=== PATIENT | male | born 1955 | race Caucasian/White ===

== ENCOUNTER 2022-12-01 05:51 | Observation (INO) ==
--- NOTE | 2022-11-24 11:13 | Anesthesiology Consultation ---
Date of Service November 24, 2022 Assessment & Plan (1) Encounter for pre-operative examination: Chart Review Chart Review: Acceptable Risk for Surgery and Patient NOT seen in Pre Admission Testing -COVID screening: Per PAT nursing assessment on 11/24/22. Pt traveled to [place] (drove)- returned 11/06/22- no large gatherings. No PPE. No known COVID-19 positive contacts or current COVID-19 related symptoms. Patient vaccinated for Covid. At surgeon discretion if preop Covid testing being done. History Surgery Operation Date: 12/01/22 07:30 Proposed Procedures p Laparoscopic Robotic Assisted Radical Retropubic Prostatectomy, Possible Open, Possible Pelvic Lymph Node Dissection - Jonathan Mcfadden MD Height/Weight Height: 6 ft 6 in Weight: 106.594 kg Allergies Allergy/AdvReac Type Severity Reaction Status Date / Time No Known Allergies Allergy Verified 11/24/22 10:16 Medications Home Medications Medication Instructions Recorded Confirmed Last Taken Juice plus capsule 1 cap PO DAILY 10/27/22 11/24/22 Unknown Past Medical History Medical History Prostate cancer (09/29/22) Past Family History Family History Mother , 90yo Colorectal cancer CHF (congestive heart failure) Grandfather (Paternal) Cancer Grandfather (Maternal) Hypertension Grandfather (Paternal) Stroke Father , 82yo Lung disease CHF (congestive heart failure) Aortic aneurysm Brother No problems noted. Brother No problems noted. Brother No problems noted. Son No problems noted. Son Down's syndrome Daughter No problems noted. Daughter No problems noted. Past Surgical History Surgical History History of detached retina repair Left eye Hx of colonoscopy Hx of wisdom tooth extraction Social History Smoking Status: Never smoker Do You Dip or Chew Tobacco: No Hx Alcohol Use: No Hx Substance Use: No substance use type: does not use Lab Results Anesthesia Preop Results Results Anesthesia Widget: WBC 4.52 K/ul (4.8-10.8) L 11/11/22 Hgb 14.3 g/dl (14.0-18.0) 11/11/22 Hct 42.4 % (42.0-52.0) 11/11/22 Plt 176 K/uL (130-400) 11/11/22 Na 140 mmol/L (136-145) 11/11/22 K 4.4 mmol/L (3.5-5.1) 11/11/22 Cl 107 mmol/L (98-107) 11/11/22 CO2 31 mmol/L (21-32) 11/11/22 BUN 14 mg/dl (6-23) 11/11/22 Creat 0.94 mg/dl (0.6-1.4) 11/11/22 Glucose Level 100 mg/dl (70-99(Fasting)) H 11/11/22 Urine Color Yellow 11/11/22 Urine Appearance Clear (Clear) 11/11/22 Urine pH 6.0 (4.5-7.5) 11/11/22 Urine Specific [place] 1.018 (1.000-1.030) 11/11/22 Urine Protein Negative (Negative) 11/11/22 Urine Glucose (UA) Negative (Negative) 11/11/22 Urine Ketones Negative (Negative) 11/11/22 Urine Blood Negative (Negative) 11/11/22 Urine Nitrite Negative (Negative) 11/11/22 Urine Bilirubin Negative (Negative) 11/11/22 Urine Urobilinogen Negative (Negative) 11/11/22 Urine Leukocyte Esterase Negative (Negative) 11/11/22 Testing Laboratory Results 11/11/22= URINE CULTURE: 3 types of organisms present, all low counts probable skin luci Electrocardiogram Date: 11/11/22 Findings: + NSR @ (63bpm) Normal EKG per cardio Chest X-Ray Date: 11/11/22 Findings: + NAD
[2022-12-01] MEDS ORDERED: HEPARIN SOD 5,000 UNIT/0.5 ML VIAL SQ SCH (06:00)
[2022-12-01] MEDS ORDERED: LR 15ML/HR IV SCH (06:00)
[2022-12-01] MEDS ORDERED: LACTATED RINGER'S 1,000 ML IV SCH (06:00)
[2022-12-01] MEDS ORDERED: ceFAZolin 2000MG 2,000 MG/15 ML SYR IV SCH (06:00)
[2022-12-01] MEDS ORDERED: PROPOFOL IV EMULSION 10 MG/ML 20 ML VIAL IV ONE (07:00)
[2022-12-01] MEDS ORDERED: fentaNYL citrate PF 100 MCG/2 ML VIAL ONE (07:00)
[2022-12-01] MEDS ORDERED: ROCURONIUM BROMIDE 10 MG/ML 5 ML VIAL IV ONE (07:00)
[2022-12-01] MEDS ORDERED: DEXAMETHASONE SOD INJ 4 MG/ML VIAL ONE (07:00)
[2022-12-01] MEDS ORDERED: MIDAZOLAM HCL 1 MG/ML 2ML VIAL ONE (07:00)
[2022-12-01] MEDS ORDERED: LIDOCAINE 2% 2 ML VIAL/AMP(20MG/ML) INFIL ONE (07:00)
[2022-12-01] MEDS ORDERED: SUGAMMADEX SODIUM 200 MG/2 ML VIAL IV ONE (07:00)
[2022-12-01] MEDS ORDERED: ONDANSETRON INJ 2 MG/ML 2 ML VIAL ONE (07:00)
--- NOTE | 2022-12-01 07:04 | History & Physical Bridge Note ---
Date of Service December 01, 2022 History & Physical Bridge Note I have examined the patient, reviewed the History & Physical and in the interval since the performance of the History & Physical I have noted the following changes of clinical significance: no changes noted
[2022-12-01] MEDS ORDERED: BUPIVACAINE 0.5 % 5 MG/1 ML MPF 30ML VIAL ONE (07:16)
[2022-12-01] MEDS ORDERED: BELLADONNA/OPIUM SUPP 60 MG SUPP PR ONE ×2 (07:50→11:33)
[2022-12-01] MEDS ORDERED: HYDROmorphone INJ 2 MG/ML SYR/VIAL ONE (08:42)
--- NOTE | 2022-12-01 11:46 | Operative Report ---
PG Post Operative Report Pre & Post Diagnosis Operation Date: 12/01/22 07:30 Pre-Op Diagnosis: Prostate Cancer Post-Op Diagnosis: Prostate Cancer I identified the patient and participated in the time-out.: Yes Procedure Operation Date: 12/01/22 07:30 Actual Procedures p Robotic Assisted Laparoscopic Radical Retropubic Prostatectomy, bilateral pelvic lymph node dissection- Jonathan Mcfadden MD Surgeon Jonathan Mcfadden MD Air Brush Decorator COLLEEN Briceno Estimated Blood Loss 100 Findings Consistent with Post-Op Diagnosis Specimens 1) periprostatic fat 2) right pelvic lymph nodes 3) left pelvic lymph nodes 4) prostate, seminal vesicles, vas deferens Drains Pavon catheter per urethra Anesthesia Type General Complications none Disposition Accompanied Patient To Recovery: Yes Disposition: Recovery Room Indications This is a 67-year-old male with history of prostate cancer. After thorough discussion of treatment options, he elected to proceed with robot-assisted radical prostatectomy. He presented to the OR for this procedure on 12/01/2022. Description of Procedure The patient was identified in the preoperative holding area and informed consent was confirmed. He was then brought to the operating room where general anesthesia was initiated. He was placed supine on the operating room table with all pressure points appropriately padded. His abdomen and genitalia were prepped and draped in the usual sterile fashion and a timeout was performed. A 2 cm incision was made above the umbilicus and then a Veress needle was used to obtain access to the abdomen. Proper position was confirmed with the drop test and low initial insufflation pressure. The abdomen was insufflated with CO2 to a pressure of 12 mmHg. An 8 mm robotic port was placed in the incision and the robotic camera was inserted. The abdominal cavity was surveyed, demonstrating no injury to abdominal contents. There were no significant intra- abdominal adhesions.. The remaining robotic ports were placed under direct visualization, with 2 robotic ports on the left side and 1 robotic port on the right. A 12 mm recreational assistant port was placed on the right side as well, and a 5 mm recreational assistant port was placed in the right upper quadrant. The robot was then docked. Using electrocautery, the bladder was then dropped from the anterior wall of the abdomen, exposing the space of Retzius. This dissection was carried down to expose the pelvic brim and subsequently the anterior surface of the prostate and the endopelvic fascia. The fat overlying the anterior of the prostate was removed and sent for pathologic analysis, labeled as 'periprostatic fat'. The endopelvic fascia was then divided on each side to expose the lateral aspects of the prostate and the lateral aspects of the pedicles. There was some inflammatory rind to the endopelvic fascia on both sides of the prostate. A single 3-0 V-Loc suture was used to ligate the dorsal venous complex to prevent backbleeding in subsequent steps. The fourth arm of the robot was then used to put some gentle traction on the bladder, and the bladder neck was identified. Using electrocautery, the anterior bladder neck was dissected to expose the Pavon catheter, whose tip was removed from the bladder and held anteriorly. The posterior bladder neck dissection was then completed. At this point bilateral vas deferens were exposed and isolated. The vas deferens were cauterized and then divided. Bilateral seminal vesicles were dissected out as well. Denonvilliers fascia was then divided and the posterior prostate dissection was carried up as far as possible toward the urethra. The pedicles were then divided using combination of clips and sharp dissection, trying to use minimal electrocautery. On the right side the nerve sparing approach was used. On the left side, a partial nerve sparing approach was used Attention was turned anteriorly and the dorsal venous complex was divided using sharp dissection and electrocautery. The urethra was isolated and then divided sharply. At this point, the prostate was free and was placed in a specimen bag. Bilateral pelvic lymph node dissection was then performed, and the eda tissue was sent for pathologic analysis. The pelvis was inspected and meticulous hemostasis was ensured. Double-armed V- Loc suture was then used to re-anastomose the bladder neck with the urethra. Once this was complete, the anastomosis was tested by instilling 120 mL of normal saline into the bladder. Satisfied that the anastomosis was watertight, the catheter balloon was inflated with 10 mL of normal saline. A "Masha" style stitch to create a peritoneal window with the hope of preventing future lymphocele formation was performed on each side using a 4-0 Monocryl suture. The robot was then undocked. The supraumbilical incision was extended and the prostate was extracted. 0 Vicryl suture was then used to close the fascia at this incision. All skin incisions were anesthetized with 0.5% Marcaine and were closed with 4-0 Monocryl suture and then a layer of Dermabond was applied. The patient was then awakened from anesthesia and was brought to the PACU in stable condition. COLLEEN Briceno, acted as the bedside recreational assistant for the duration of the case. She assisted with gaining access, providing retraction and suction. Passing in sutures and applying clips as needed. She also helped with specimen extraction and closing. I attest to the content of the Intraoperative Record and any orders documented therein. Any exceptions are noted below.
[2022-12-01] MEDS ORDERED: ONDANSETRON INJ 2 MG/ML 2 ML VIAL IV PRN (13:24)
[2022-12-01] MEDS ORDERED: IBUPROFEN 200 MG TAB PO PRN (13:24)
[2022-12-01] MEDS ORDERED: POLYETHYLENE (MIRALAX) 17 GM PACK PO PRN (13:24)
[2022-12-01] MEDS ORDERED: MoRPHine SULFATE 2 MG/ML CARP IV PRN (13:24)
[2022-12-01] MEDS ORDERED: MoRPHine SULFATE 4 MG/ML 1 ML CARP\\VIAL IV PRN (13:24)
[2022-12-01] MEDS ORDERED: oxyCODONE HCL IR 5 MG TAB (IMMEDIATE RELEASE) PO PRN ×2 (13:24)
--- NOTE | 2022-12-01 14:10 | Anesthesiology Progress Note ---
Date of Service December 01, 2022 Anesthesia Post Procedure Vital Signs Vital Signs: Temp Pulse Pulse Resp BP BP Pulse Ox 12/01/22 14:00 36.4 C L 74 17 109/67 96 12/01/22 13:45 36.4 C L 75 16 132/75 95 12/01/22 13:35 36.9 C 77 16 128/71 98 12/01/22 12:50 72 12 120/69 96 12/01/22 12:40 36.5 C 72 12 125/67 95 12/01/22 12:30 74 12 127/66 96 12/01/22 12:20 79 12 130/69 98 12/01/22 12:10 77 10 L 139/71 98 12/01/22 12:00 36.1 C L 72 12 117/69 97 12/01/22 06:11 36.6 C 76 20 126/83 97 O2 Del Method O2 Flow Rate 12/01/22 14:00 Nasal Cannula 3 12/01/22 13:45 Nasal Cannula 12/01/22 13:35 Nasal Cannula 3 12/01/22 12:50 Room Air 2 12/01/22 12:40 Nasal Cannula 2 12/01/22 12:30 Room Air 12/01/22 12:20 Oxymask 4 12/01/22 12:10 Oxymask 6 12/01/22 12:00 Oxymask 6 12/01/22 06:11 Room Air Transfer of Care Handoff Completed per policy Notes Mental Status: alert / awake / arousable and participated in evaluation Patient Amnestic to Procedure: Yes Nausea / Vomiting: adequately controlled Pain: adequately controlled Airway Patency, RR, SpO2: stable & adequate BP & HR: stable & adequate Hydration State: stable & adequate Anesthetic Complications: no major complications apparent and Pt Satisfied with anesthetic care
[2022-12-01] MEDS: ceFAZolin 2000MG 2,000 MG/15 ML SYR IV SCH (16:26)
[2022-12-01] MEDS ORDERED: ERYTHROMYCIN OP OINT 1 GM PKT OP SCH (18:30)
[2022-12-01] MEDS: ERYTHROMYCIN OP OINT 5 MG/GM 3.5 GM TUBE OP SCH (19:04)
[2022-12-01] MEDS: LACTATED RINGER'S 1,000 ML IV SCH ×2 (19:39→23:06)
[2022-12-01] MEDS: ACETAMINOPHEN 325 MG TAB PO SCH (20:15)
[2022-12-01] MEDS: DOCUSATE SODIUM 100 MG CAP PO SCH (20:17)
[2022-12-01] MEDS: HEPARIN SOD 5,000 UNIT/0.5 ML VIAL SQ SCH (20:17)
[2022-12-02] MEDS: ERYTHROMYCIN OP OINT 5 MG/GM 3.5 GM TUBE OP SCH ×2 (00:03→07:26)
[2022-12-02] MEDS: ceFAZolin 2000MG 2,000 MG/15 ML SYR IV SCH (00:03)
[2022-12-02] MEDS: ACETAMINOPHEN 325 MG TAB PO SCH ×2 (02:22→09:05)
[2022-12-02 08:06] LABS: Basophils # (auto) 0.02 K/uL (0-0.2); Basophils % (auto) 0.2 %; Eosinophils # (auto) 0.01 K/uL (0-0.50); Eosinophils % (auto) 0.1 %; Hematocrit (blood only) 39.1 % (42.0-52.0); Hemoglobin 13.2 g/dl (14.0-18.0); Immature Granulocytes # (auto) 0.04 K/uL (0.01-0.20); Immature Granulocytes % (auto) 0.5 %; Lymphocytes # (auto) 1.44 K/uL (1.2-3.4); Lymphocytes % (auto) 16.6 %; Mean Corpuscular Hemoglobin 29.5 pg (25.0-34.0); Mean Corpuscular Hgb Conc 33.8 g/dL (32.0-36.0); Mean Corpuscular Volume 87.3 fL (80.0-100.0); Mean Platelet Volume 9.8 fL (9.4-12.4); Monocytes % (auto) 11.5 %; Neutrophils # (auto) 6.17 K/uL (1.40-6.50); Neutrophils % (auto) 71.1 %; Platelet Count 178 K/uL (130-400); RDW Coefficient of Variation 14.3 % (11.5-14.5); RDW Standard Deviation 45.5 fL (36.4-46.3); Red Blood Count 4.48 M/uL (4.70-6.10); White Blood Count 8.68 K/ul (4.8-10.8)
[2022-12-02 08:31] LABS: Calcium 9.4 mg/dl (8.5-10.1); Potassium 4.3 mmol/L (3.5-5.1)
[2022-12-02 08:37] LABS: BUN Creatinine Ratio 14.1 (10-20); Est GFR (African American) 89.7 ml/min; Est GFR (Non-African American) 77.4 ml/min
--- NOTE | 2022-12-02 08:46 | Urology Progress Note ---
I have discussed Mr. Arango's case with COLLEEN Briceno and agree with the documentation. Patient doing well postop day 1 from robot-assisted radical prostatectomy. He is ambulating, tolerating a diet and his pain is well controlled. He should be appropriate for discharge home with catheter in place. We will plan on follow-up in 1 week for voiding trial and pathology review. Jonathan Mcfadden MD. Date of Service December 02, 2022 Assessment & Plan (1) Prostate cancer: Plan POD #1 s/p Robotic Assisted Laparoscopic Radical Retropubic Prostatectomy, bilateral pelvic lymph node dissection with Dr. Mcfadden. Doing well this morning, progressing as expected. Remains afebrile and hemodynamically stable. Labs today show no leukocytosis, normal renal function, stable hemoglobin at 13.2. Pavon catheter is intact and draining clear yellow urine. Tolerating diet without nausea or vomiting. Ambulating without issue. Patient is stable for discharge home today with Pavon catheter. Discharge instructions were reviewed, all questions were answered. Will arrange appropriate postoperative follow-up. Admission and Anticipated Discharge Date Admission Date: December 01, 2022 Subjective Patient seen and examined at bedside this AM with Dr. Mcfadden. Awake, sitting up in bedside chair on arrival. No acute distress. No acute issues overnight. Pavon catheter intact, draining clear yellow urine in tubing. Minimal pain. Ambulating without issue. Tolerating diet, no nausea or vomiting. Review of Systems Constitutional: as per Subjective / HPI Gastrointestinal: as per Subjective / HPI Genitourinary: + as per Subjective / HPI Physical Exam Constitutional: well developed and well nourished; no acute distress Respiratory: normal respiratory effort; no respiratory distress and no labored breathing Gastrointestinal (Abdomen): Incisions appropriate, Dermabond intact. Skin: No visible rashes or lesions to exposed skin areas Neurologic: moves all extremities and awake Psychiatric: A+Ox3, euthymic affect Genitourinary: Pavon catheter intact Results & Data ([facility]) Vital Signs (Past 12 Hours) Vital Signs Temp Pulse Resp BP Pulse Ox O2 Del Method 12/02/22 02:27 37.3 C 73 16 120/68 96 Room Air 12/01/22 21:38 36.8 C 79 18 146/75 H 95 Room Air PG Care Time/CCT Total # of Minutes Spent Total Time Spent with Patient: Total time spent is greater than 50% in coordination of care (as documented) at patient's floor/unit and/or counseling patient: Coding Level of Care Code None Diagnoses Prostate cancer C61
[2022-12-02] MEDS: DOCUSATE SODIUM 100 MG CAP PO SCH (09:05)
[2022-12-02] MEDS: HEPARIN SOD 5,000 UNIT/0.5 ML VIAL SQ SCH (09:06)
[2022-12-02] MEDS: LACTATED RINGER'S 1,000 ML IV SCH (10:40)
--- NOTE | 2022-12-02 13:54 | Discharge Summary ---
Date of Service December 02, 2022 Admission HPI Per Admitting Provider 67 year old male with prostate cancer admitted for robotic prostatectomy Admission Exam Per Admitting Provider Constitutional well developed and well nourished; no acute distress Eyes + anicteric sclerae; pupils not irregular Respiratory normal respiratory effort; no respiratory distress, does not use accessory muscles and no cough Cardiovascular well perfused Gastrointestinal (Abdomen) Inspection/Auscultation: abdomen normal to inspection; abdomen not distended Musculoskeletal Extremities: extremities normal to inspection Skin normal turgor; no rashes and no lesions Neurologic moves all extremities and awake Psychiatric Orientation: alert and oriented x 3 Principal Diagnosis Prostate cancer Discharge Exam Constitutional well developed and well nourished; no acute distress Respiratory normal respiratory effort; no respiratory distress and no labored breathing Gastrointestinal (Abdomen) Incisions appropriate, Dermabond intact Neurologic moves all extremities and awake Psychiatric A+Ox3, euthymic affect Genitourinary Leiva catheter intact Discharge Data Allergies Allergy/AdvReac Type Severity Reaction Status Date / Time No Known Allergies Allergy Verified 12/01/22 06:07 Procedures Performed Operation Date: 12/01/22 07:30 Actual Procedures p Robotic Assisted Laparoscopic Radical Retropubic Prostatectomy(Not Applicable) - Jonathan Mcfadden MD Hospital Course (1) Prostate cancer: Plan 67 year old male admitted for Robotic Assisted Laparoscopic Radical Retropubic Prostatectomy, bilateral pelvic lymph node dissection with Dr. Mcfadden. Patient tolerated procedure well. No acute issues postoperatively. He remained afebrile and hemodynamically stable. Appropriate labs. Minimal pain. He tolerated a diet and ambulated without issue. Urine was clear yellow. He was subsequently discharged home on postop day #1 with a leiva catheter. He was in stable condition at time of discharge. Postoperative follow-up appointments were in place. Discharge instructions were reviewed, all questions were answered. Total Time Total Time Spent Total Time Spent (In Minutes): 15 Discharge Plan Discharge Items Patient Disposition: Home - Self-Care Reason For Visit: Prostate Cancer Discharge Diagnosis: Prostate cancer Condition on Discharge: Good Activity: Per Instructions section Non-emergency contact: Surgeon and Urologist Call non-emergency contact if: you have any medication questions, your pain is not controlled, your temperature is above 101 and your wound has increased redness Follow-up/Referrals: Jonathan Mcfadden MD [Physician] - 12/08/22 9:20 am Petr Gustafson MD [Primary Care Provider] - Diet: Regular Addtl Attending Provider Instructions: The surgery you had was: Robot-assisted radical prostatectomy with bilateral pelvic lymph node dissection. Please take all medications as prescribed and keep all follow-ups as scheduled. Please call our office at [phone] with any questions, concerns or need to reschedule appointments for any reason. We are happy to assist you Medications: Please take all medications as prescribed. For pain control, you can take tylenol every 6 hours. You can also take ibuprofen every 6 hours. If you have been prescribed a narcotic pain medication, please take this according to the instructions on the label. You have been prescribed a single dose of antibiotics (Bactrim) to be taken 1 hour prior to your appointment for leiva catheter removal. Activity: We recommend having someone with you for the first few days after surgery to help care for you. For the first 2 weeks after surgery, we would like you to get up and walk around your house. However, we recommend limit physical activity that would increase your heart rate. This will allow your body to rest and heal. Take naps if you feel tired. Don't lift anything heavier than 10 pounds, mow the law or ride a bicycle until your follow-up appointment. Please avoid long car rides. Home Care: Unless directed otherwise, drink 6 to 8 glasses of water a day (enough to keep your urine light colored). This will also help keep a healthy flow of urine. We recommend using a stool softener such as colace or miralax for the first two weeks to avoid constipation. Leiva Catheter or Suprapubic Catheter care: Keep the catheter well secured with either a leg back or leg strap with large bag. Empty your bag when it's about half full. You may notice some blood in the bag. This is normal after surgery and while the catheter is in place. Use mild soap (such as Dove or Dial) and water to wash the catheter and the head of your penis daily, or more frequently if needed. Return to your normal diet, we encourage good protein intake to promote healing. You may shower as normal. Please avoid tub baths or soaking until catheter removed and incisions well healed. Wearing sweat pants while you have the catheter is recommended, they will be more comfortable. Follow-up We will have you come to the office in approximately 7 days for catheter removal. - Please remember to take your dose of antibiotics 1 hour prior to this appointment. We will plan to go over pathology results at this visit. We will schedule an office visit in approximately 3 months with PSA prior. Your final pathology report will be discussed at your physician follow-up appointment. Call [facility] at [phone] right away if you have any of the following: Chest pain or trouble breathing (call 911 or go to the hospital) Fever of 101F or higher, uncontrolled vomiting Heavy bleeding, clots, or bright red blood from the catheter Catheter that falls out or stops draining Foul-smelling discharge from your catheter Redness, swelling, warmth, or increased pain at your incision site Drainage, pus, or bleeding from your incision Pending Studies at Discharge: No Stand-Alone Forms: [facility] Medications and DC Order Prescriptions: New sulfamethoxazole-trimethoprim [Bactrim DS] 800-160 mg tablet 1 tab PO ONCE Qty: 1 0RF Continued Juice plus capsule 1 cap PO DAILY Discharge Orders: Discharge Order (Routine); Ordered 12/02/22 Ordered By: Dania Mcbride/Other Patient Handouts: Urinary Catheter Bag Empty Clean, Indwelling Urinary Catheter Dc, Leg Bag Care Dc Admission Data Admit Date/Time: 12/01/22 12:00 Attending Provider: Jonathan Mcfadden Admit Provider: Jonathan Mcfadden Primary Care Provider: Petr Gustafson Other Interventions: Discharge Summary Assessment (RN) Last Done: 12/02/22 10:10 Coding Level of Care Code 51410 IN/OBS DISCH 30 MIN/LESS Diagnoses Prostate cancer C61
== END 2022-12-02 11:11 | disposition home or self-care (01) | DRG 708 ==
LOC: ASU 05:51 → INTOOBSV 12:00 → 3W 12:00
DX: C61 Malignant neoplasm of prostate; Z80.0 Family history of malignant neoplasm of digestive organs; Z82.3 Family history of stroke